=== PATIENT | female | born 1985 | race Caucasian/White ===

== ENCOUNTER 2018-11-21 10:14 | Observation (INO) | payer BC ==
[2018-11-21] MEDS: SOD CHLORIDE 0.9% 0 ML IV (10:23)
[2018-11-21 10:42] LABS: ADD MAN DIFF? NO
[2018-11-21 10:44] LABS: WHITE BLOOD COUNT 5.9 10^3/ul (4.8-10.8)
[2018-11-21 10:45] LABS: ABNORMAL IP MESSAGE 1; BASOPHILS % 0.5 % (0.0-2.0); EOSINOPHILS # 0.1 10^3/ul (0.0-0.5); EOSINOPHILS % 0.9 % (0.0-7.0); HEMATOCRIT 26.3 % (37.0-47.0); LYMPHOCYTES # 1.4 10^3/ul (0.8-2.9); LYMPHOCYTES % 23.6 % (15.0-51.0); MEAN CORPUSCULAR HEMOGLOBIN 16.4 pg (29.0-33.0); MEAN CORPUSCULAR HGB CONC 25.5 g/dl (32.0-37.0); MEAN CORPUSCULAR VOLUME 64.3 fl (82.0-101.0); MEAN PLATELET VOLUME 9.1 fl (7.4-10.4); MONOCYTE # 0.5 10^3/ul (0.3-0.9); MONOCYTES % 7.7 % (0.0-11.0); NEUTROPHILS % 67.1 % (39.0-77.0); PLATELET COUNT 390 10^3/UL (140-415); RED BLOOD COUNT 4.09 10^6/ul (4.20-5.40); RED CELL DISTRIBUTION WIDTH 19.6 % (11.5-14.5)
[2018-11-21 10:46] LABS: HEMOGLOBIN 6.7 g/dl (12.0-16.0); POSITIVE DIFF @See below
[2018-11-21 10:47] LABS: PATH REVIEW? YES
[2018-11-21 11:52] LABS: ANISOCYTOSIS 3+ (0-0); BASOPHILS % (M) 1 % (0-2); EOSINOPHILS % (M) 1 % (0-7); HYPOCHROMASIA 3+ (0-0); LYMPHOCYTES #M 1.6 10^3/ul (0.8-2.9); LYMPHOCYTES % (M) 28 % (15-51); MICROCYTOSIS 3+ (0-0); MONOCYTE #M 0.5 10^3/ul (0.3-0.9); MONOCYTES % (M) 9 % (0-11); PLATELET ESTIMATE NORMAL; POIKILOCYTOSIS 1+ (0-0); POLYCHROMASIA 2+ (0-0); SEGMENTED NEUTROPHILS (M) % 61 % (39-77); SMUDGE%M 1 % (0-0)
[2018-11-21 11:57] LABS: IMMEDIATE SPIN CROSSMATCH 1 2
[2018-11-21] MEDS ORDERED: NACL 0.9% 3 ML SYG IV (14:00)
[2018-11-21 17:03] LABS: TOTAL IRON BINDING CAPACITY 534 ug/dl (241-421)
[2018-11-21 17:20] LABS: IRON < 10 ug/dl (35-150)
[2018-11-21 17:32] LABS: FERRITIN 2.1 ng/ml (6.2-137.0)
[2018-11-23 11:16] LABS: HAPTOGLOBIN 137 mg/dL (43-212)
== END 2018-11-21 19:30 | disposition home or self-care (01) ==
LOC: E/R 10:14 → 5EC 11:43
PROVIDERS: Internal Medicine; Pediatrics Pediatric Critical Care Medicine
DX: O99.011 Anemia complicating pregnancy, first trimester (principal); D50.9 Iron deficiency anemia, unspecified; Z3A.10 10 weeks gestation of pregnancy
CPT/HCPCS: 36430; 76801; 82728; 83010; 83540; 84702; 85025; 86850; 86900; 86901; 86920; 99217